=== PATIENT | male | born 1955 | race Caucasian/White ===

== ENCOUNTER 2021-10-21 15:25 | Emergency (ER) | payer OTHER, MEDICAID ==
[~2021-10-21] VITALS: Ht 175.3 cm; Wt 70.3 kg
[~2021-10-21 15:25] MED LIST: FERR-57 PO; FURO-149 PO; LACT10SO66 PO; OMEP20CA15 PO; PROP10TA10 PO; SPIR100T PO
--- NOTE | 2021-10-21 15:55 | NUR ---
Patient to ER bed 1 for evaluation. Side rails up. Report given to Lamar FITZGERALD.
[2021-10-21 16:00] VITALS: BP_SYST 140
--- NOTE | 2021-10-21 16:04 | NUR ---
65 YEARS OLD MALE PRESENTS TO ER C/O ABD ASCITES ABDOMEN SOFT NON TENDER NO SOB NO CP.
--- NOTE | 2021-10-21 16:14 | NUR ---
PATIENT ALERT ORIENTED X4 LEFT WITHOUT BEING SEEN.
--- NOTE | 2021-10-21 16:23 | NUR ---
Patient left without being seen.
== END 2021-10-21 19:20 | disposition left against medical advice (07) ==
LOC: SED 15:25
DX: R10.9 Unspecified abdominal pain (principal); Z53.21 Procedure and treatment not carried out due to patient leaving prior to being seen by health care provider

== ENCOUNTER 2021-10-23 15:59 | Emergency (ER) | payer OTHER, MEDICAID ==
[~2021-10-23] VITALS: Ht 172.7 cm; Wt 70.8 kg
[2021-10-23 16:00] VITALS: BP_SYST 157
== END 2021-10-23 18:07 | disposition home or self-care (01) ==
LOC: SED 15:59
DX: R18.8 Other ascites (principal); Z79.899 Other long term (current) drug therapy
CPT/HCPCS: 99281